=== PATIENT | female | born 1985 | race American Indian/Alaskan Native ===

== ENCOUNTER 2017-04-30 13:20 | Inpatient (IN) | payer MEDICAID ==
[2017-04-30] MEDS ORDERED: LACTATED RINGERS 1,000 ML ONE (14:09)
[2017-04-30] MEDS ORDERED: LACTATED RINGERS 1,000 ML IV ONE (14:11)
[2017-04-30] MEDS ORDERED: ePHEDrine SULFATE IV PRN ×2 (15:28→17:33)
[2017-04-30] MEDS ORDERED: STADOL IV PRN (15:28)
[2017-04-30] MEDS ORDERED: BRETHINE IVP PRN (15:28)
[2017-04-30] MEDS ORDERED: ZOFRAN IV PRN ×2 (15:28→21:33)
[2017-04-30] MEDS ORDERED: BRETHINE SUB-Q PRN (15:28)
[2017-04-30] MEDS ORDERED: PHENERGAN PO PRN ×2 (15:28→21:33)
[2017-04-30] MEDS ORDERED: MINERAL OIL PO PRN (15:28)
[2017-04-30] MEDS ORDERED: SUBLIMAZE IV PRN (15:28)
--- NOTE | 2017-04-30 15:34 | History and Physical Report ---
History of Present Illness Date of examination: 04/30/17 Chief complaint: SROM clear fluid @ 1200 History of present illness: Pt is a 31yo BF EDC 05/05/17; EGA 39 2/7 weeks presents to L&D complaining of SROM clear fluid @ 1200 followed by irregular contractions. She received care at [facility] ; however records are not available and GBS is unknown. Past History Past Medical History: no pertinent history Past Surgical History: no surgical history Social history: no significant social history, single - Obstetrical History Expected Date of Delivery: 05/05/17 Actual Gestation: 39 Week(s) 2 Day(s) : 3 Medications and Allergies Allergies Allergy/AdvReac Type Severity Reaction Status Date / Time No Known Allergies Allergy Verified 05/03/15 10:20 Home Medications Medication Instructions Recorded Confirmed Last Taken Type Multivit-Min/Folic Acid/[id number] 1 each PO DAILY 05/03/15 04/30/17 04/28/17 10:00 History [Alive Women's Gummy Vitamins] metroNIDAZOLE [Flagyl] 500 mg PO Q12HR 05/03/15 04/30/17 05/07/15 History 0100 valACYclovir [Valtrex] 500 mg PO BID 05/03/15 04/30/17 04/30/17 10:00 History 1 HYDROcodone/APAP 5-325 [[place] 1 each PO Q6H PRN #30 tablet 05/09/15 04/30/17 Unknown Rx 5-325 mg TAB] Ibuprofen [Motrin 600 MG tab] 600 mg PO Q6HR #30 tablet 05/09/15 04/30/17 Unknown Rx Ferrous Sulfate [Feosol 325 MG tab] 65 mg PO QDAY 04/30/17 04/30/17 04/30/17 10: 00 History Active Meds: Active Medications Butorphanol Tartrate (Stadol) 2 mg IV Q2H PRN PRN Reason: Pain , Severe (7-10) Ephedrine Sulfate (Ephedrine Sulfate) 10 mg IV Q2M PRN PRN Reason: Hypotension Fentanyl (Sublimaze) 100 mcg IV Q2H PRN PRN Reason: Labor Pain Ampicillin Sodium (Polycillin/Ns 1 Gm/50 Ml) 1 gm in 50 mls @ 100 mls/hr IV Q4HR POLA PRN Reason: Protocol Ampicillin Sodium (Polycillin/Ns 2 Gm/100 Ml) 2 gm in 100 mls @ 100 mls/hr IV ONCE ONE PRN Reason: Protocol Stop: 04/30/17 16:27 Lactated Ringer's (Lactated Ringers) 1,000 mls @ 125 mls/hr IV DIRECT POLA Oxytocin/Sodium Chloride (Pitocin/Ns 20 Unit/1000ml Drip) 20 units in 1,000 mls @ 125 mls/hr IV DIRECT POLA Oxytocin/Sodium Chloride (Pitocin/Ns 30 Unit/500ml) 30 units in 500 mls @ 1 mls /hr IV TITR POLA; 1 MILLIUNITS/MIN PRN Reason: Protocol Oxytocin/Sodium Chloride (Pitocin/Ns 30 Unit/500ml) 30 units in 500 mls @ 4 mls /hr IV TITR POLA PRN Reason: Protocol Lidocaine (Xylocaine 2%) 20 ml INFILTRATI ONCE ONE Stop: 04/30/17 15:29 Mineral Oil (Mineral Oil) 30 ml PO QHS PRN PRN Reason: Constipation Ondansetron HCl (Zofran) 4 mg IV Q8H PRN PRN Reason: Nausea And Vomiting Promethazine HCl (Phenergan) 25 mg PO Q6H PRN PRN Reason: Nausea And Vomiting Terbutaline Sulfate (Brethine) 0.25 mg SUB-Q ONCE PRN PRN Reason: Hyperstimulation/Hypertonicity Terbutaline Sulfate (Brethine) 0.25 mg IVP ONCE PRN PRN Reason: Hyperstimulation/Hypertonicity Review of Systems All systems: negative - Vital Signs Vital signs: Vital Signs Temp Pulse Resp BP 96.2 F L 90 18 133/81 04/30/17 13:37 04/30/17 13:37 04/30/17 13:37 04/30/17 13:37 Temp Pulse Resp BP Pulse Ox 96.2 F L 90 18 133/81 04/30/17 13:37 04/30/17 13:40 04/30/17 13:37 04/30/17 13:40 - Physical Exam Breasts: Positive: deferred Cardiovascular: Regular rate Lungs: Positive: Clear to auscultation Abdomen: Positive: normal appearance, soft Genitourinary (Female): Positive: normal external genitalia Vagina: Positive: normal moisture Uterus: Positive: enlarged Extremities: Positive: normal - Obstetrical FHR: category 1 Uterine Contraction Monitor Mode: External Cervical Dilatation: 1.5 Cervical Effacement Percentage: 90 station: -2 Uterine Contraction Pattern: Irregular Uterine Tone Measurement Phase: Contraction Uterine Contraction Intensity: Mild Results Result Diagrams: 04/30/17 14:20 All other labs normal. Ultrasound: report reviewed Assessment and Plan - Patient Problems (1) 39 weeks gestation of Onset Date: 04/30/17 Current Visit: Yes Status: Acute Plan to address problem: A: IUP @ 39 2/7 weeks in labor Unknown GBS P: Admit to L&D for expectant vaginal delivery IV Ampicillin (2) Anemia affecting third Onset Date: 04/30/17 Current Visit: Yes Status: Acute
--- NOTE | 2017-04-30 15:39 | Ultrasound Report ---
FINAL REPORT EXAM: US OB FOLLOW UP HISTORY: SROM TECHNIQUE: Obstetrical sonographic imaging was performed Comparison: None, no previous exams have been performed FINDINGS: Images demonstrate single live intrauterine gestation in vertex presentation. Posterior fundal placenta without previa identified. heart rate measures 144 beats per minute. Calculated JENNIFER 8.6 centimeters. Cervical length measures 3.9 centimeters. measurements with estimated gestational age as follows: Biparietal diameter 9.48 centimeters, 38 weeks 5 days Head circumference 33.77 centimeters, 38 weeks 5 days Abdominal circumference 34.96 centimeters, 38 weeks 6 days Femur length 7.42 centimeters, 38 weeks 0 days Average ultrasonographic gestational age is 38 weeks 4 days with estimated due date 05/10/2017. Estimated weight 3548 grams +/-525 grams. Per the Hadlock criteria, 55th percentile per weight. HC/AC 0.97. Cephalic index 87.1. Biophysical profile score 8/8. anatomic survey was not performed due to the advanced gestational age. IMPRESSION: Single live intrauterine gestation in vertex presentation at 38 weeks 4 days with estimated due date of 05/10/2017. Calculated JENNIFER 8.6 centimeters. This is low normal but does not qualify for oligohydramnios. Posterior fundal placenta. No Previa. Cervical length measures 3.9 centimeters. heart rate measures 144 beats per minute. Biophysical profile score 8/8.
--- NOTE | 2017-04-30 15:40 | Ultrasound Report ---
FINAL REPORT EXAM: US OB BPP WO NON-STRESS HISTORY: SROM TECHNIQUE: Obstetrical sonographic imaging was performed. Comparison: None FINDINGS: Single live intrauterine gestation in vertex presentation at 38 weeks 4 days with estimated due date of 05/10/2017. Calculated JENNIFER 8.6 centimeters. This is low normal but does not qualify for oligohydramnios. Posterior fundal placenta. No Previa. Cervical length measures 3.9 centimeters. heart rate measures 144 beats per minute. Biophysical profile score 8/8. IMPRESSION: Biophysical profile score 8/8.
[2017-04-30 15:49] LABS: Hemoglobin 6.8 gm/dl (10.1-14.3); Mean Corpuscular HGB Conc 33 % (30-34); Mean Corpuscular Hemoglobin 30 pg (28-32); Mean Corpuscular Volume 91 fl (79-97); Platelet Count 317 K/mm3 (140-440); Red Blood Count 2.31 M/mm3 (3.65-5.03); Red Cell Distribution Width 23.8 % (13.2-15.2)
[2017-04-30] MEDS ORDERED: PITOCin/NS 30 UNIT/500ML 30 UNITS/500 ML BAG IV SCH ×2 (16:00)
[2017-04-30] MEDS ORDERED: PITOCin/NS 20 UNIT/1000ML DRIP 20 UNITS/1,000 ML BAG IV SCH ×2 (16:00→22:00)
[2017-04-30] MEDS ORDERED: POLYCILLIN/NS 2 GM/100 ML 2 GM/100 ML BAG IV ONE (16:00)
[2017-04-30] MEDS ORDERED: LACTATED RINGERS 1,000 ML IV SCH (16:00)
[2017-04-30] MEDS ORDERED: XYLOCAINE 2% INFILTRATI ONE (17:00)
[2017-04-30] MEDS ORDERED: NARCAN 2 MG/2 ML IV PRN (17:33)
--- NOTE | 2017-04-30 17:33 | Anesthesia Consultation ---
Anesthesia Consult and Med Hx Date of service: 04/30/17 - Airway Anesthetic Teeth Evaluation: Good ROM Head & Neck: Adequate Mental/Hyoid Distance: Adequate Mallampati Class: Class II Intubation Access Assessment: Probably Good - Pulmonary Exam CTA: Yes - Cardiac Exam Cardiac Exam: RRR - Pre-Operative Health Status ASA Pre-Surgery Classification: ASA2 Proposed Anesthetic Plan: Epidural - Pulmonary Hx Asthma: No COPD: No Hx Pneumonia: No - Cardiovascular System Hx Hypertension: No - Central Nervous System Hx Seizures: No Hx Psychiatric Problems: No - Endocrine Hx Renal Disease: No Hx End Stage Renal Disease: No Hx Hypothyroidism: No Hx Hyperthyroidism: No - Hematic Hx Anemia: No Hx Sickle Cell Disease: No - Other Systems Hx Alcohol Use: Yes
[2017-04-30] MEDS ORDERED: fentaNYL-BUPIV 2 MCG/ML-0.125% 200 MCG/100 ML BAG EPIDURAL SCH (18:00)
[2017-04-30] MEDS ORDERED: POLYCILLIN/NS 1 GM/50 ML 1 GM/50 ML BAG IV SCH (20:00)
[2017-04-30] MEDS ORDERED: PHENERGAN PR PRN (21:33)
[2017-04-30] MEDS ORDERED: BENADRYL PO PRN (21:33)
[2017-04-30] MEDS ORDERED: TUCKS PAD TP PRN (21:33)
[2017-04-30] MEDS ORDERED: LANSINOH TP PRN (21:33)
[2017-04-30] MEDS ORDERED: TYLENOL PO PRN (21:33)
[2017-04-30] MEDS ORDERED: NORCO 5/325 PO PRN (21:33)
[2017-04-30] MEDS ORDERED: DULCOLAX PR PRN (21:33)
[2017-04-30] MEDS ORDERED: MILK OF MAGNESIA PO PRN (21:33)
--- NOTE | 2017-04-30 21:40 | Procedure Note ---
OB Delivery Note - Delivery Date of Delivery: 04/30/17 Surgeon: HANNY PEREZ Estimated blood loss: 100cc - Vaginal Delivery presentation: vertex Delivery position: OA Intrapartum events: febrile- temp >100.3, PROM->1hr before delivery Delivery induction: none Delivery augmentation: pitocin Delivery monitor: external FHT, external uterine Route of delivery: Delivery placenta: spontaneous Delivery cord: 3 umbilical vessels Episiotomy: none Delivery laceration: none Anesthesia: epidural Delivery comments: delivered OA and placed on Mom's chest for [id number] contact and delayed cord clamping. - Infant A at 1 minute: 8 at 5 minutes: 9 Infant Gender: Female (3222gms)
[2017-04-30] MEDS ORDERED: SODIUM CHLORIDE FLUSH SYRINGE 10 ML IV PRN (22:00)
[2017-04-30] MEDS: MOTRIN PO SCH (22:07)
[2017-05-01] MEDS: FEOSOL PO SCH ×2 (00:49→18:20)
[2017-05-01] MEDS: COLACE PO SCH ×2 (00:49→18:19)
[2017-05-01] MEDS: MOTRIN PO SCH ×3 (05:19→18:11)
[2017-05-01 11:01] LABS: Hematocrit TNR % (30.3-42.9); Hemoglobin TNR gm/dl (10.1-14.3)
[2017-05-01 11:20] LABS: Hematocrit 38.1 % (30.3-42.9); Hemoglobin 12.6 gm/dl (10.1-14.3)
--- NOTE | 2017-05-01 11:51 | Progress Note ---
Assessment and Plan - Patient Problems (1) 39 weeks gestation of Onset Date: 04/30/17 Current Visit: Yes Status: Resolved (2) Anemia affecting third Onset Date: 04/30/17 Current Visit: Yes Status: Resolved (3) (normal spontaneous vaginal delivery) Onset Date: 05/01/17 Current Visit: No Status: Resolved Plan to address problem: A: S/P - PPD #1 Doing well P: May go home tomorrow. Subjective - Subjective Date of service: 05/01/17 Principal diagnosis: s/p - PPD #1 Interval history: Pt is feeling well without complaints. Bleeding improved. Patient reports: appetite normal, voiding normally, flatus, ambulating normally : doing well, nursing well Objective - Vital Signs Latest vital signs: Vital Signs Temp Pulse Resp BP BP Pulse Ox 05/01/17 07:47 97.6 F 18 94/43 05/01/17 05:19 98.2 F 98 H 20 100/54 98 05/01/17 01:11 98.8 F 98 H 20 114/54 98 05/01/17 00:23 99.0 F 97 H 18 115/56 96 04/30/17 23:14 112 H 102/50 04/30/17 23:13 107 H 105/51 96 04/30/17 22:45 120 H 106/54 04/30/17 22:14 102 H 137/60 04/30/17 21:21 101 H 100 04/30/17 21:17 107 H 100 04/30/17 21:15 110 H 97/45 04/30/17 21:12 106 H 100 04/30/17 21:06 106 H 98 04/30/17 21:01 89 100 04/30/17 20:57 97 H 100 04/30/17 20:51 97 H 100 04/30/17 20:46 86 100 04/30/17 20:41 97 H 100 04/30/17 20:36 103 H 100 04/30/17 20:31 93 H 100 04/30/17 20:27 95 H 100 04/30/17 20:22 92 H 100 04/30/17 20:20 99.1 F 04/30/17 20:17 93 H 100 04/30/17 20:14 90 93 04/30/17 20:12 87 100 04/30/17 19:52 94 H 90 04/30/17 19:47 98.7 F 20 100 04/30/17 19:16 80 110/59 04/30/17 18:56 94 H 94 04/30/17 18:51 86 97 04/30/17 18:47 113 H 86 04/30/17 18:46 103 H 100 04/30/17 18:42 86 114/55 04/30/17 18:41 92 H 100 04/30/17 18:37 85 115/58 04/30/17 18:36 82 100 04/30/17 18:32 96 H 133/65 04/30/17 18:31 97 H 100 04/30/17 18:26 87 100 04/30/17 18:25 76 122/57 04/30/17 18:21 83 87 04/30/17 18:20 73 114/56 04/30/17 18:19 84 92 04/30/17 18:16 100 H 89 04/30/17 18:14 92 H 104/56 04/30/17 18:12 72 111/59 92 04/30/17 18:11 74 100 04/30/17 18:10 71 110/57 04/30/17 18:08 93 H 107/58 04/30/17 18:07 53 L 83 L 04/30/17 18:06 89 106/52 100 04/30/17 18:04 96 H 102/50 04/30/17 18:02 87 108/51 04/30/17 18:01 88 100 04/30/17 18:00 73 117/61 04/30/17 17:59 95 H 93 04/30/17 17:58 86 115/56 04/30/17 17:56 48 L 105/51 99 04/30/17 17:54 96 H 107/58 04/30/17 17:52 86 105/51 04/30/17 17:50 83 110/58 100 04/30/17 17:48 85 142/66 04/30/17 17:46 86 140/64 04/30/17 17:44 89 135/80 04/30/17 17:42 90 128/67 04/30/17 17:40 88 122/64 04/30/17 17:38 92 H 113/64 04/30/17 17:36 80 139/73 04/30/17 17:34 90 140/73 04/30/17 17:32 89 141/65 99 04/30/17 17:31 47 L 04/30/17 17:30 76 143/65 04/30/17 17:28 73 144/70 04/30/17 17:27 77 100 04/30/17 17:26 84 135/68 04/30/17 17:23 84 139/70 04/30/17 17:22 80 99 04/30/17 17:17 88 100 04/30/17 17:08 16 04/30/17 16:54 76 136/75 04/30/17 16:20 93 H 125/67 04/30/17 16:12 18 04/30/17 13:40 90 133/81 04/30/17 13:37 96.2 F L 90 18 133/81 Intake and Output 04/30/17 05/01/17 05/01/17 22:59 06:59 14:59 Intake Total 400 Output Total 400 1800 Balance -400 -1400 Intake: Oral 400 Output: Urine 400 1800 Indwelling Catheter 400 1800 Other: Total, Intake Amount 200 Total, Output Amount 200 500 Estimated Blood Loss 100 - Exam Breasts: Present: deferred Cardiovascular: Present: Regular rate Lungs: Present: Clear to auscultation Abdomen: Present: normal appearance, soft Uterus: Present: normal, firm, fundal height below umbilicus Extremities: Present: normal - Labs Labs: Abnormal lab results 04/30/17 Range/Units 14:20 WBC 11.4 H (4.5-11.0) K/mm3 RBC 2.31 L (3.65-5.03) M/mm3 Hgb 6.8 L (10.1-14.3) gm/dl Hct 21.0 L (30.3-42.9) % RDW 23.8 H (13.2-15.2) % Laboratory Tests 04/30/17 04/30/17 05/01/17 14:20 14:20 09:55 WBC 11.4 H RBC 2.31 L Hgb 6.8 L TNR Hct 21.0 L TNR MCV 91 MCH 30 MCHC 33 RDW 23.8 H Plt Count 317 Blood Type A POSITIVE Antibody Screen Negative 05/01/17 10:56 WBC RBC Hgb 12.6 D Hct 38.1 D MCV MCH MCHC RDW Plt Count Blood Type Antibody Screen
--- NOTE | 2017-05-01 12:28 | Discharge Summary ---
Providers - Providers Date of Admission: 04/30/17 21:05 Date of discharge: 05/02/17 Attending physician: HANNY PEREZ Primary care physician: HANNY PEREZ Hospitalization Reason for admission: active labor, rupture of membranes, IUP at term Delivery: Episiotomy: none Laceration: none Other procedures: none complications: none Discharge diagnosis: IUP at term delivered [place] baby: female Hospital course: Unremarkable. Condition at discharge: Good Disposition: DC-01 TO HOME OR SELFCARE - Discharge Diagnoses (1) 39 weeks gestation of Status: Resolved (2) Anemia affecting third Status: Resolved (3) (normal spontaneous vaginal delivery) Status: Resolved Plan - Discharge Medications Prescriptions: Ibuprofen [Motrin 600 MG tab] 600 mg PO Q6HR #30 tablet Pnv No.95/Ferrous Fum/Folic AC [ Multivitamin Tablet] 1 each PO DAILY # 30 tablet - Provider Discharge Summary Activity: routine, no sex for 6 weeks, no heavy lifting 4 weeks, no strenuous exercise Diet: routine Instructions: routine Additional instructions: [] Smoking cessation referral if applicable(refer to patient education folder for contact #) [] Refer to [facility]'s [facility] Booklet Call your doctor immediately for: * Fever > 100.5 * Heavy vaginal bleeding ( >1 pad per hour) * Severe persistent headache * Shortness of breath * Reddened, hot, painful area to leg or breast * Drainage or odor from incision. * Keep incision clean and dry at all times and follow doctor's instructions regarding bathing/showering - Follow up plan Follow up: HANNY PEREZ MD [Primary Care Provider] - 6 Weeks
[2017-05-01 12:58] LABS: Amphetamine Screen,Urine PRESUMPTIVE NEGATIVE; Benzodiazepines Screen,Urine PRESUMPTIVE NEGATIVE; Cannabinoid Screen,Urine PRESUMPTIVE NEGATIVE; Cocaine Screen,Urine PRESUMPTIVE NEGATIVE; Methadone Screen,Urine PRESUMPTIVE NEGATIVE; Opiate Screen,Urine PRESUMPTIVE NEGATIVE
[2017-05-01] MEDS: PRENATAL VITAMIN PO SCH (18:20)
[2017-05-01] MEDS ORDERED: M-M-R II VACCINE SUB-Q ONE (21:33)
[2017-05-02] MEDS: MOTRIN PO SCH ×4 (00:50→17:46)
[2017-05-02] MEDS ORDERED: BOOSTRIX IM ONE (06:00)
[2017-05-02] MEDS: PRENATAL VITAMIN PO SCH (12:25)
[2017-05-02] MEDS: COLACE PO SCH (12:25)
[2017-05-02] MEDS: FEOSOL PO SCH (12:25)
[2017-05-02 17:11] VITALS: BP 123/61
== END 2017-05-02 19:57 | disposition home or self-care (01) | DRG 775 ==
LOC: TRG 13:20 → LD 13:22 → TRG 21:00 → LD 21:05 → OB 23:20
PROVIDERS: ADMIT Obstetrics & Gynecology; ATTEND Obstetrics & Gynecology
PROC: 10E0XZZ Delivery of Products of Conception, External Approach (ICD-10-PCS; principal; 2017-04-30)
PROC: 3E0R3BZ Introduction of Anesthetic Agent into Spinal Canal, Percutaneous Approach (ICD-10-PCS; 2017-04-30)
PROC: 00HU33Z Insertion of Infusion Device into Spinal Canal, Percutaneous Approach (ICD-10-PCS; 2017-04-30)
PROC: 3E0234Z Introduction of Serum, Toxoid and Vaccine into Muscle, Percutaneous Approach (ICD-10-PCS; 2017-05-01)
DX: O42.02 Full-term premature rupture of membranes, onset of labor within 24 hours of rupture (principal); Z3A.39 39 weeks gestation of pregnancy; Z37.0 Single live birth; O99.02 Anemia complicating childbirth; D64.9 Anemia, unspecified; O99.314 Alcohol use complicating childbirth; Z72.89 Other problems related to lifestyle; Z23 Encounter for immunization
CPT/HCPCS: 36415; 76816; 76819; 80307; 85014; 85018; 85027; 86592; 86706; 86762; 86850; 86900; 86901; 87806; 88307; 99211; G0463; J0290; J0595; J2590; J3010; J7120

== ENCOUNTER 2019-08-18 12:36 | Inpatient (IN) | payer MEDICAID ==
[2019-08-18] MEDS ORDERED: ePHEDrine SULFATE 50 MG/1 ML INJ IV PRN (13:51)
[2019-08-18] MEDS ORDERED: TERBUTALINE 1 MG/1 ML INJ SUB-Q PRN (13:51)
[2019-08-18] MEDS ORDERED: MINERAL OIL 30 ML ORAL LIQD PO PRN (13:51)
[2019-08-18] MEDS ORDERED: LACTATED RINGERS 1,000 ML IV SCH (14:00)
[2019-08-18] MEDS ORDERED: AMPICILLIN/NS 2 GM/100 ML 2 GM/100 ML BAG IV ONE (14:30)
[2019-08-18] MEDS: fentaNYL 100 MCG/2 ML INJ IV PRN ×2 (14:37→17:05)
[2019-08-18] MEDS ORDERED: LIDOCAINE (2%) 20 MG/1 ML VIAL 20 ML MDV INFILTRATI ONE (15:00)
[2019-08-18 15:07] LABS: Hematocrit 40.2 % (30.3-42.9); Hemoglobin 13.6 gm/dl (10.1-14.3); Mean Corpuscular HGB Conc 34 % (30-34); Mean Corpuscular Volume 94 fl (79-97); Platelet Count 200 K/mm3 (140-440); Red Blood Count 4.27 M/mm3 (3.65-5.03); Red Cell Distribution Width 15.2 % (13.2-15.2)
--- NOTE | 2019-08-18 15:23 | History and Physical Report ---
History of Present Illness Date of examination: 08/18/19 Date of admission: 08/18/19 13:57 Chief complaint: Labor History of present illness: 34 year old presents in active advanced labor. Patient denies leaking of fluid or vaginal bleeding. Patient receives care at [facility]. No records are available. EDC per patient report is 08/22/2019 (based on US and LMP). uneventful per patient report. Patient reports she has had 3 previous vaginal deliveries (one and two full term). labs were drawn upon admission. Past History Past Medical History: other (obesity) Past Surgical History: no surgical history [employer] History: denies: abnormal PAP smear, chlamydia, gonorrhea, hepatitis B, hepatitis C, herpes, HIV, syphilis, trichomonas Family/Genetic History: diabetes Social history: lives with family, full code. denies: smoking, alcohol abuse, prescription drug abuse, IV drug use - Obstetrical History Expected Date of Delivery: 08/22/19 Actual Gestation: 39 Week(s) 3 Day(s) : 4 Para: 3 Hx # Term Pregnancies: 2 Number of Pregnancies: 1 Spontaneous Abortions: 0 Induced : 0 Number of Living Children: 2 Medications and Allergies Allergies Allergy/AdvReac Type Severity Reaction Status Date / Time No Known Allergies Allergy Verified 05/03/15 10:20 Home Medications Medication Instructions Recorded Confirmed Last Taken Type Multivit-Min/Folic Acid/Rpg208 1 each PO DAILY 05/03/15 04/30/17 04/28/17 10:00 History [Alive Women's Gummy Vitamins] metroNIDAZOLE [Flagyl] 500 mg PO Q12HR 05/03/15 04/30/17 05/07/15 History 0100 valACYclovir [Valtrex] 500 mg PO BID 05/03/15 04/30/17 04/30/17 10:00 History 1 HYDROcodone/APAP 5-325 [[place] 1 each PO Q6H PRN #30 tablet 05/09/15 04/30/17 Unknown Rx 5-325 mg TAB] Ferrous Sulfate [Feosol 325 MG tab] 65 mg PO QDAY 04/30/17 04/30/17 04/30/17 10:00 History Ibuprofen [Motrin 600 MG tab] 600 mg PO Q6HR #30 tablet 05/01/17 Unknown Rx Pnv No.95/Ferrous Fum/Folic AC 1 each PO DAILY #30 tablet 05/01/17 Unknown Rx [ Multivitamin Tablet] Active Meds: Active Medications Ephedrine Sulfate (Ephedrine Sulfate) 10 mg IV Q2M PRN PRN Reason: Hypotension Fentanyl (Sublimaze) 100 mcg IV Q2H PRN PRN Reason: Labor Pain Last Admin: 08/18/19 14:37 Dose: 100 mcg Documented by: Oxytocin/Sodium Chloride (Pitocin/Ns 20 Unit/1000ml Drip) 20 units in 1,000 mls @ 125 mls/hr IV DIRECT POLA Lactated Ringer's (Lactated Ringers) 1,000 mls @ 125 mls/hr IV DIRECT POLA Last Admin: 08/18/19 14:34 Dose: 125 mls/hr Documented by: Ampicillin Sodium (Ampicillin/Ns 2 Gm/100 Ml) 2 gm in 100 mls @ 100 mls/hr IV ONCE ONE; Protocol Stop: 08/18/19 15:29 Last Admin: 08/18/19 14:34 Dose: 100 mls/hr Documented by: Mineral Oil (Mineral Oil) 30 ml PO QHS PRN PRN Reason: Constipation Terbutaline Sulfate (Brethine) 0.25 mg SUB-Q ONCE PRN PRN Reason: Hyperstimulation/Hypertonicity Review of Systems All systems: negative (contractions) - Vital Signs Vital signs: Vital Signs Pulse Pulse Ox 86 81 L 08/18/19 13:00 08/18/19 13:00 Temp Pulse Resp BP Pulse Ox 98.5 F 89 18 141/71 98 08/18/19 13:50 08/18/19 15:13 08/18/19 13:50 08/18/19 14:44 08/18/19 15:13 - Physical Exam Abdomen: Positive: normal appearance, soft. Negative: distention, tenderness, guarding, rigidity Genitourinary (Female): Positive: normal external genitalia, normal perenium. Negative: perineal/vulvar lesions (no lesions seen on careful exam with bright light upon admission) Vagina: Positive: normal moisture Uterus: Positive: enlarged. Negative: tender Anus/Rectum: Positive: normal perianal skin Extremities: Positive: normal. Negative: tenderness - Obstetrical FHR: category 1 Uterine Contraction Monitor Mode: External Cervical Dilatation: 8 Cervical Effacement Percentage: 90 station: -2 Uterine Contraction Pattern: Regular Uterine Contraction Intensity: Moderate Results Result Diagrams: 08/18/19 14:00 All other labs normal. Assessment and Plan A: at 39 weeks, 3 days gestation. Active labor. GBS unknown. No records available. P: Admit. Request records. EFM. GBS prophylaxis. Draw labs.
[2019-08-18 15:56] LABS: Hepatitis C Virus Antibody Non-Reactive (NonReactive)
[2019-08-18] MEDS ORDERED: ONDANSETRON 4 MG/2 ML INJ IV PRN (16:19)
[2019-08-18] MEDS: OXYTOCIN 20 UNIT/1000ML DRIP 20 UNITS/1,000 ML BAG IV SCH ×2 (16:56→18:35)
[2019-08-18 19:15] LABS: Alanine Aminotransferase 10 units/L (7-56); Albumin 3.4 g/dL (3.9-5); BUN/Creatinine Ratio 12; Blood Urea Nitrogen 7 mg/dL (7-17); Calcium 9.3 mg/dL (8.4-10.2); Hemolysis Index 16
[2019-08-18] MEDS ORDERED: AMPICILLIN/NS 1 GM/50 ML 1 GM/50 ML BAG IV SCH (19:29)
[2019-08-18] MEDS ORDERED: MAGNESIUM HYDROXIDE (MOM) ORAL LIQD UDC PO PRN (19:31)
[2019-08-18] MEDS ORDERED: LANOLIN/ZINC/DIMETHICONE (LANSINOH) 7 GM TP PRN (19:31)
[2019-08-18] MEDS ORDERED: WITCH HAZEL/ GLYCERIN PAD TP PRN (19:31)
[2019-08-18] MEDS ORDERED: HYDROcodone/ACETAMINOPHEN 5-325 MG TAB PO PRN (19:31)
[2019-08-18] MEDS ORDERED: diphenhydrAMINE 25 MG CAP PO PRN (19:31)
--- NOTE | 2019-08-18 19:45 | Procedure Note ---
OB Delivery Note - Delivery Date of Delivery: 08/18/19 Surgeon: YVAN FITZPATRICK Estimated blood loss: 300cc - Vaginal Delivery presentation: vertex Delivery position: OA Intrapartum events: none Delivery induction: none Delivery monitor: external FHT, external uterine Route of delivery: Delivery placenta: spontaneous Delivery cord: 3 umbilical vessels Episiotomy: midline Delivery laceration: none Delivery repair: vicryl Anesthesia: local Delivery comments: Spontaneous vaginal delivery at 16:50 of liveborn male weighing 3559 kg over 2nd degree midline episiotomy with apgars of 8/9. Local anesthesia. Baby placed immediately skin to skin with mom after delivery. Spontaneous cry and respirations. Baby bulb suctioned and dried. 3 vessel cord double clamped and cut. Spontaneous delivery of intact placenta and membranes by mistry mechanism. Pitocin to IV fluids after delivery of placenta. Fundus firm and midline. EBL 300 cc. Repair of 2nd degree midline episiotomy with 2-0 vicryl. Sponge count correct. Vaginal sweep negative. Mother and baby stable.
[2019-08-18] MEDS: DOCUSATE SODIUM 100 MG CAP PO SCH (22:22)
[2019-08-18] MEDS: IBUPROFEN 600 MG TAB PO SCH (22:23)
[2019-08-19] MEDS: IBUPROFEN 600 MG TAB PO SCH ×3 (06:07→18:26)
[2019-08-19 08:17] LABS: Hematocrit 35.4 % (30.3-42.9); Hemoglobin 12.4 gm/dl (10.1-14.3)
--- NOTE | 2019-08-19 10:27 | Progress Note ---
Subjective - Subjective Date of service: 08/19/19 Principal diagnosis: day 1 S/P Interval history: day 1 S/P . Doing well. Voiding without difficulty. Reports small amount of lochia. Patient reports: appetite normal, voiding normally, pain well controlled, flatus, ambulating normally, no dizzy ambulation, no nauseated : doing well Objective - Vital Signs Latest vital signs: Vital Signs Temp Pulse Resp BP Pulse Ox 08/19/19 07:37 97.8 F 72 18 123/69 98 08/19/19 04:41 97.9 F 89 18 104/54 98 08/19/19 01:48 98.4 F 79 18 99/54 98 08/18/19 21:30 99.0 F 93 H 18 127/61 98 08/18/19 18:41 79 116/55 08/18/19 18:40 99.4 F 81 18 99 08/18/19 17:46 74 99 08/18/19 17:45 99.6 F 73 18 120/61 99 08/18/19 17:41 82 99 08/18/19 17:36 78 100 08/18/19 17:31 72 99 08/18/19 17:26 79 99 08/18/19 17:21 75 99 08/18/19 17:16 79 98 08/18/19 17:11 82 97 08/18/19 17:00 76 132/63 08/18/19 16:47 86 100 08/18/19 16:46 76 79 L 08/18/19 16:42 75 100 08/18/19 16:38 88 92 08/18/19 16:37 89 100 08/18/19 16:32 87 100 08/18/19 16:27 83 96 08/18/19 16:26 82 91 08/18/19 16:22 86 100 08/18/19 16:17 78 100 08/18/19 16:16 67 92 08/18/19 16:12 80 100 08/18/19 16:09 82 46 L 08/18/19 16:07 81 100 08/18/19 16:02 83 99 08/18/19 15:57 84 100 08/18/19 15:38 90 98 08/18/19 15:33 80 99 08/18/19 15:28 78 98 08/18/19 15:23 89 97 08/18/19 15:18 88 97 08/18/19 15:13 89 98 08/18/19 15:08 91 H 98 08/18/19 15:06 89 88 08/18/19 15:03 78 98 08/18/19 14:58 82 97 08/18/19 14:53 86 98 08/18/19 14:48 82 98 08/18/19 14:44 93 H 141/71 08/18/19 14:43 93 H 100 08/18/19 14:38 71 100 08/18/19 14:07 93 H 96 08/18/19 14:03 101 H 94 08/18/19 14:02 86 100 08/18/19 13:57 92 H 97 08/18/19 13:52 54 L 98 08/18/19 13:50 98.5 F 18 08/18/19 13:07 91 H 129/69 08/18/19 13:00 86 81 L Intake and Output 08/18/19 08/19/19 08/19/19 23:59 07:59 15:59 Intake Total 206.25 600 Output Total 800 500 Balance -593.75 100 Intake: IV 206.25 PITOCin/NS 20 UNIT/1000ML 206.25 DRIP 20 units In 1,000 ml @ 125 mls/hr IV DIRECT POLA Rx#:[id number] Intake, Free Water 600 Output: Urine 800 500 Self-Catheterization 800 500 Other: Total, Output Amount 300 500 # Voids Self-Catheterization 1 Estimated Blood Loss 300 - Exam Cardiovascular: Present: Regular rate, Normal S1, Normal S2 Lungs: Present: Clear to auscultation Abdomen: Present: normal appearance, soft. Absent: distention, tenderness, guarding, rigidity Uterus: Present: normal, firm, fundal height below umbilicus. Absent: silva gginess, tenderness Extremities: Present: normal. Absent: tenderness - Labs Labs: Abnormal lab results 08/18/19 Range/Units 18:15 Sodium 136 L (137-145) mmol/L Carbon Dioxide 21 L (22-30) mmol/L Creatinine 0.6 L (0.7-1.2) mg/dL Glucose 128 H (65-100) mg/dL Alkaline Phosphatase 171 H (35-129) units/L Albumin 3.4 L (3.9-5) g/dL
[2019-08-19] MEDS: DOCUSATE SODIUM 100 MG CAP PO SCH ×2 (10:49→22:46)
[2019-08-20] MEDS: IBUPROFEN 600 MG TAB PO SCH ×2 (00:42→06:06)
--- NOTE | 2019-08-20 06:52 | Progress Note ---
Assessment and Plan A: day 2 S/P . P: Discharge patient home today. Discussed with patient discharge instructions and warning signs. Advised patient to avoid lifting, intercourse, housework. Advised patient to continue taking her vitamins and iron supplements. Advised patient to follow up at [facility] in 6 weeks for exam. Patient voiced understanding of all instructions. Subjective - Subjective Date of service: 08/20/19 Principal diagnosis: day 2 S/P Interval history: day 2 S/P . Doing well. Voiding without difficulty. Reports small amount of lochia. Patient reports: appetite normal, voiding normally, pain well controlled, flatus, ambulating normally, no dizzy ambulation, no nauseated [place]: doing well Objective - Vital Signs Latest vital signs: Vital Signs Temp Pulse Resp BP Pulse Ox 08/20/19 03:17 98.1 F 86 20 113/62 96 08/19/19 16:18 97.9 F 101 H 18 116/76 98 08/19/19 12:22 98.6 F 81 18 131/70 96 08/19/19 07:37 97.8 F 72 18 123/69 98 Intake and Output 08/19/19 08/19/19 08/20/19 15:59 23:59 07:59 Intake Total 480 240 Balance 480 240 Intake: Oral 480 240 Other: Total, Intake Amount 240 240 # Voids Self-Catheterization 1 1 1 - Exam Cardiovascular: Present: Regular rate, Normal S1, Normal S2 Lungs: Present: Clear to auscultation Abdomen: Present: normal appearance, soft. Absent: distention, tenderness, guarding, rigidity Uterus: Present: normal, firm, fundal height below umbilicus. Absent: bogginess, tenderness Extremities: Present: normal. Absent: tenderness, edema
--- NOTE | 2019-08-20 06:55 | Discharge Summary ---
Providers - Providers Date of Admission: 08/18/19 13:57 Date of discharge: 08/20/19 Attending physician: GIOVANA MAYEN Primary care physician: LARRY MARTINEZ MD Hospitalization Reason for admission: active labor Delivery: Episiotomy: midline Other procedures: none complications: none Discharge diagnosis: IUP at term delivered Rudyard baby: male Pertinent studies: Labs Hospital course: Normal hospital course. Condition at discharge: Good Disposition: DC-01 TO HOME OR SELFCARE - Discharge Diagnoses (1) Term delivered Status: Acute Plan - Provider Discharge Summary Activity: routine, no sex for 6 weeks, no heavy lifting 4 weeks, no strenuous exercise Diet: routine Instructions: routine Additional instructions: Continue taking your vitamin and iron supplements at home. Call your doctor immediately for: * Fever > 100.5 * Heavy vaginal bleeding ( >1 pad per hour) * Severe persistent headache * Shortness of breath * Reddened, hot, painful area to leg or breast - Follow up plan Follow up: PRIMARY CAREMD [Primary Care Provider] - 6 Weeks
[2019-08-20 09:17] VITALS: BP 103/47
[2019-08-20] MEDS: DOCUSATE SODIUM 100 MG CAP PO SCH (10:19)
== END 2019-08-20 13:12 | disposition home or self-care (01) | DRG 775 ==
LOC: TRG 12:36 → APU 12:41 → TRG 13:56 → LD 13:57 → OB 21:38
PROVIDERS: ADMIT Obstetrics & Gynecology; ATTEND Obstetrics & Gynecology
PROC: 10E0XZZ Delivery of Products of Conception, External Approach (ICD-10-PCS; principal; 2019-08-18)
PROC: 0KQM0ZZ Repair Perineum Muscle, Open Approach (ICD-10-PCS; 2019-08-18)
PROC: 0W8NXZZ Division of Female Perineum, External Approach (ICD-10-PCS; 2019-08-18)
DX: O99.214 Obesity complicating childbirth (principal); O70.1 Second degree perineal laceration during delivery; Z37.0 Single live birth; Z3A.39 39 weeks gestation of pregnancy; Z83.3 Family history of diabetes mellitus; E66.9 Obesity, unspecified
CPT/HCPCS: 36415; 59025; 80053; 83036; 85014; 85018; 85027; 86592; 86706; 86762; 86803; 86850; 86900; 86901; 87806; 96360; 96361; 96365; 96366; 96375; 96376; G0378; A6250; J0290; J2405; J2590; J3010; J7120

== ENCOUNTER 2020-05-12 11:17 | Emergency (ER) | payer MEDICAID ==
[2020-05-12] MEDS ORDERED: ONDANSETRON 4 MG ODT TAB PO ONE (11:47)
[2020-05-12] MEDS ORDERED: MECLIZINE 25 MG TAB PO ONE ×2 (11:47→11:57)
--- NOTE | 2020-05-12 11:48 | Emergency Department Report ---
ED General Adult HPI - General Chief complaint: Dizziness Stated complaint: VOMITTING/DIZZY/RINGING IN EAR Time Seen by Provider: 05/12/20 11:47 Source: patient Mode of arrival: Wheelchair Limitations: No Limitations - History of Present Illness Initial comments: 34-year-old -[place] female presents with complaints of dizziness and nausea and vomiting x4 days. She describes the dizziness as room spinning and states it worsens with head movement and causes her to feel nauseous and vomit. She denies any head trauma, vision changes, headache, loss of consciousness, blood thinner use, history of vertigo, difficulty with speech/ambulation, or numbness/tingling/weakness in her limbs. She does admit to recent upper respiratory infection, but denies cough, shortness of breath, or chest pain. No fever/chills/sweats per patient or difficulty moving her neck. No prior medical history per patient. - Related Data Home Medications Medication Instructions Recorded Confirmed Last Taken valACYclovir [Valtrex] 500 mg PO DAILY 05/03/15 08/18/19 08/17/19 15:00 Vit-Fe Fumar-FA [ 1 tab PO QDAY 08/18/19 08/18/19 Unknown Vitamin] Previous Rx's Medication Instructions Recorded Last Taken Type Ibuprofen [Motrin 600 MG tab] 600 mg PO Q6HR #30 tablet 08/20/19 Unknown Rx Meclizine [Antivert] 25 - 50 mg PO TID PRN #20 tablet 05/12/20 Unknown Rx Ondansetron [Zofran Odt] 4 mg PO Q8HR PRN #15 tab.rapdis 05/12/20 Unknown Rx Sulfamethoxazole/Trimethoprim 1 each PO BID 3 Days #6 tablet 05/12/20 Unknown Rx [Bactrim DS TAB] Allergies Allergy/AdvReac Type Severity Reaction Status Date / Time No Known Allergies Allergy Verified 05/03/15 10:20 ED Review of Systems ROS: Stated complaint: VOMITTING/DIZZY/RINGING IN EAR Other details as noted in HPI Constitutional: denies: chills, diaphoresis, fever, malaise, weakness Eyes: denies: eye pain, vision change ENT: denies: throat pain Respiratory: denies: cough, shortness of breath Cardiovascular: denies: chest pain Gastrointestinal: nausea, vomiting. denies: abdominal pain Genitourinary: denies: urgency, dysuria Musculoskeletal: denies: back pain Skin: denies: rash, lesions, change in color Neurological: denies: headache, weakness, numbness, paresthesias, confusion, abnormal gait Hematological/Lymphatic: denies: easy bleeding, easy bruising, swollen glands ED Past Medical Hx - Past Medical History Previous Medical History?: No Hx Hypertension: No Hx Congestive Heart Failure: No Hx Diabetes: No Hx Deep Vein Thrombosis: No Hx Renal Disease: No Hx Sickle Cell Disease: No Hx Seizures: No Hx Asthma: No Hx COPD: No Hx HIV: No - Social History Smoking Status: Never Smoker Substance Use Type: None - Medications Home Medications: Home Medications Medication Instructions Recorded Confirmed Last Taken Type valACYclovir [Valtrex] 500 mg PO DAILY 05/03/15 08/18/19 08/17/19 15:00 History Vit-Fe Fumar-FA [ 1 tab PO QDAY 08/18/19 08/18/19 Unknown History Vitamin] Ibuprofen [Motrin 600 MG tab] 600 mg PO Q6HR #30 tablet 08/20/19 Unknown Rx Meclizine [Antivert] 25 - 50 mg PO TID PRN #20 tablet 05/12/20 Unknown Rx Ondansetron [Zofran Odt] 4 mg PO Q8HR PRN #15 tab.rapdis 05/12/20 Unknown Rx Sulfamethoxazole/Trimethoprim 1 each PO BID 3 Days #6 tablet 05/12/20 Unknown Rx [Bactrim DS TAB] ED Physical Exam - General Limitations: No Limitations General appearance: alert, in no apparent distress - Head Head exam: Present: atraumatic, normocephalic - Eye Eye exam: Present: normal appearance. Absent: scleral icterus - Neck Neck exam: Present: normal inspection, full ROM - Respiratory Respiratory exam: Present: normal lung sounds bilaterally. Absent: respiratory distress - Cardiovascular Cardiovascular Exam: Present: regular rate, normal rhythm. Absent: systolic murmur, diastolic murmur, rubs, gallop - GI/Abdominal GI/Abdominal exam: Present: soft, normal bowel sounds. Absent: distended, tenderness, guarding, rebound, rigid - Extremities Exam Extremities exam: Present: full ROM - Back Exam Back exam: Present: normal inspection - Neurological Exam Neurological exam: Present: alert, oriented X3, CN II-XII intact, normal gait. Absent: motor sensory deficit - Expanded Neurological Exam Expanded Cranial nerves: Nystagmus: Abnormal Right, Abnormal Left Cerebellar function: Finger to Nose: Normal, Heel to [place]: Normal, Romberg: Normal Sensory exam: Upper Extremity Light Touch: Normal, Lower Extremity Light Touch: Normal Motor strength exam: RUE: 5, LUE: 5, RLE: 5, LLE: 5 - Psychiatric Psychiatric exam: Present: normal affect, normal mood - Skin Skin exam: Present: warm, dry, intact, normal color. Absent: rash, cyanosis, diaphoretic, petechiae ED Course Vital Signs 05/12/20 11:46 Temperature 98.3 F Pulse Rate 83 Respiratory 18 Rate Blood Pressure 163/105 O2 Sat by Pulse 99 Oximetry ED Medical Decision Making - Lab Data Result diagrams: 05/12/20 12:11 05/12/20 12:11 Lab Results 05/12/20 05/12/20 05/12/20 Range/Units 12:11 12:11 12:11 WBC 5.6 (4.5-11.0) K/mm3 RBC 4.60 (3.65-5.03) M/mm3 Hgb 14.7 H (10.1-14.3) gm/dl Hct 42.6 (30.3-42.9) % MCV 93 (79-97) fl MCH 32 (28-32) pg MCHC 35 H (30-34) % RDW 12.4 L (13.2-15.2) % Plt Count 245 (140-440) K/mm3 Lymph % (Auto) 25.9 (13.4-35.0) % Slope % (Auto) 5.8 (0.0-7.3) % Eos % (Auto) 0.6 (0.0-4.3) % Baso % (Auto) 0.2 (0.0-1.8) % Lymph # (Auto) 1.4 (1.2-5.4) K/mm3 Slope # (Auto) 0.3 (0.0-0.8) K/mm3 Eos # (Auto) 0.0 (0.0-0.4) K/mm3 Baso # (Auto) 0.0 (0.0-0.1) K/mm3 Seg Neutrophils % 67.5 (40.0-70.0) % Seg Neutrophils # 3.8 (1.8-7.7) K/mm3 Sodium 140 (137-145) mmol/L Potassium 3.8 (3.6-5.0) mmol/L Chloride 100.4 (98-107) mmol/L Carbon Dioxide 29 (22-30) mmol/L Anion Gap 14 mmol/L BUN 12 (7-17) mg/dL Creatinine 0.7 (0.6-1.2) mg/dL Estimated GFR > 60 ml/min BUN/Creatinine Ratio 17 % Glucose 83 (65-100) mg/dL Calcium 9.8 (8.4-10.2) mg/dL Total Bilirubin 0.90 (0.1-1.2) mg/dL AST 19 (5-40) units/L ALT 18 (7-56) units/L Alkaline Phosphatase 96 (35-129) units/L Total Protein 8.3 H (6.3-8.2) g/dL Albumin 4.5 (3.9-5) g/dL Albumin/Globulin Ratio 1.2 % HCG, Qual Negative (Negative) Urine Color (Yellow) Urine Turbidity (Clear) Urine pH (5.0-7.0) Ur Specific [place] (1.003-1.030) Urine Protein (Negative) mg/dL Urine Glucose (UA) (Negative) mg/dL Urine Ketones (Negative) mg/dL Urine Blood (Negative) Urine Nitrite (Negative) Urine Bilirubin (Negative) Urine Urobilinogen (<2.0) mg/dL Ur Leukocyte Esterase (Negative) Urine WBC (Auto) (0.0-6.0) /HPF Urine RBC (Auto) (0.0-6.0) /HPF U Epithel Cells (Auto) (0-13.0) /HPF Urine Bacteria (Auto) (Negative) /HPF Urine Mucus /HPF 05/12/20 Range/Units Unknown WBC (4.5-11.0) K/mm3 RBC (3.65-5.03) M/mm3 Hgb (10.1-14.3) gm/dl Hct (30.3-42.9) % MCV (79-97) fl MCH (28-32) pg MCHC (30-34) % RDW (13.2-15.2) % Plt Count (140-440) K/mm3 Lymph % (Auto) (13.4-35.0) % Slope % (Auto) (0.0-7.3) % Eos % (Auto) (0.0-4.3) % Baso % (Auto) (0.0-1.8) % Lymph # (Auto) (1.2-5.4) K/mm3 Slope # (Auto) (0.0-0.8) K/mm3 Eos # (Auto) (0.0-0.4) K/mm3 Baso # (Auto) (0.0-0.1) K/mm3 Seg Neutrophils % (40.0-70.0) % Seg Neutrophils # (1.8-7.7) K/mm3 Sodium (137-145) mmol/L Potassium (3.6-5.0) mmol/L Chloride (98-107) mmol/L Carbon Dioxide (22-30) mmol/L Anion Gap mmol/L BUN (7-17) mg/dL Creatinine (0.6-1.2) mg/dL Estimated GFR ml/min BUN/Creatinine Ratio % Glucose (65-100) mg/dL Calcium (8.4-10.2) mg/dL Total Bilirubin (0.1-1.2) mg/dL AST (5-40) units/L ALT (7-56) units/L Alkaline Phosphatase (35-129) units/L Total Protein (6.3-8.2) g/dL Albumin (3.9-5) g/dL Albumin/Globulin Ratio % HCG, Qual (Negative) Urine Color Yellow (Yellow) Urine Turbidity Clear (Clear) Urine pH 6.0 (5.0-7.0) Ur Specific [place] 1.024 (1.003-1.030) Urine Protein <15 mg/dl (Negative) mg/dL Urine Glucose (UA) Neg (Negative) mg/dL Urine Ketones 20 (Negative) mg/dL Urine Blood Neg (Negative) Urine Nitrite Neg (Negative) Urine Bilirubin Neg (Negative) Urine Urobilinogen < 2.0 (<2.0) mg/dL Ur Leukocyte Esterase Sm (Negative) Urine WBC (Auto) 8.0 H (0.0-6.0) /HPF Urine RBC (Auto) 2.0 (0.0-6.0) /HPF U Epithel Cells (Auto) 10.0 (0-13.0) /HPF Urine Bacteria (Auto) 1+ (Negative) /HPF Urine Mucus 2+ /HPF - Medical Decision Making 34-year-old -[place] female presents with complaints of dizziness and nausea and vomiting x4 days. She describes the dizziness as room spinning and states it worsens with head movement and causes her to feel nauseous and vomit. She denies any head trauma, vision changes, headache, loss of consciousness, blood thinner use, history of vertigo, difficulty with speech/ambulation, or numbness/tingling/weakness in her limbs. She does admit to recent upper respiratory infection, but denies cough, shortness of breath, or chest pain. No fever/chills/sweats per patient or difficulty moving her neck. No prior medical history per patient. History and symptoms appear to be consistent with vertigo. Bilateral nystagmus noted with head movement on exam. She is neurologically intact on exam. Patient given Ativan, saline, and Zofran along with meclizine. Her symptoms have completely resolved. - UA shows mildly elevated WBCs w will DC home with 3 days of Bactrim ill DC home and have patient follow-up with primary care within 3 days. Prescription for meclizine and Zofran given. Discussed signs and symptoms that should prompt immediate return to the emergency department in detail with patient verbalized understanding. Critical care attestation.: If time is entered above; I have spent that time in minutes in the direct care of this critically ill patient, excluding procedure time. ED Disposition Clinical Impression: Vertigo, benign positional Qualifiers: Laterality: unspecified laterality Qualified Code(s): H81.10 - Benign paroxysmal vertigo, unspecified ear UTI (urinary tract infection) Qualifiers: Urinary tract infection type: acute cystitis Hematuria presence: without hematuria Qualified Code(s): N30.00 - Acute cystitis without hematuria Disposition: DC-01 TO HOME OR SELFCARE Is pt being admited?: No Condition: Stable Instructions: How to Perform the Rosy Maneuver, Benign Positional Vertigo Prescriptions: Meclizine [Antivert] 25 - 50 mg PO TID PRN #20 tablet PRN Reason: dizziness Sulfamethoxazole/Trimethoprim [Bactrim DS TAB] 1 each PO BID 3 Days #6 tablet Ondansetron [Zofran Odt] 4 mg PO Q8HR PRN #15 tab.rapdis PRN Reason: Nausea Referrals: PRIMARY CARE, [Primary Care Provider] - 3-5 Days [facility] [Provider Group] - 3-5 Days Forms: Work/School Release Form(ED)
[2020-05-12] MEDS ORDERED: SODIUM CHLORIDE 0.9% 1000 ML 1,000 ML IV ONE (11:55)
[2020-05-12] MEDS ORDERED: ONDANSETRON 4 MG/2 ML INJ IV ONE (11:55)
[2020-05-12] MEDS ORDERED: LORazepam 2 MG/ML VIAL IV ONE (11:57)
[2020-05-12 12:41] LABS: Basophils % (Auto) 0.2 % (0.0-1.8); Eosinophils % (Auto) 0.6 % (0.0-4.3); Hematocrit 42.6 % (30.3-42.9); Hemoglobin 14.7 gm/dl (10.1-14.3); Lymphocytes # (Auto) 1.4 K/mm3 (1.2-5.4); Lymphocytes % (Auto) 25.9 % (13.4-35.0); Mean Corpuscular HGB Conc 35 % (30-34); Mean Corpuscular Volume 93 fl (79-97); Monocytes # (Auto) 0.3 K/mm3 (0.0-0.8); Monocytes % (Auto) 5.8 % (0.0-7.3); Platelet Count 245 K/mm3 (140-440); Red Cell Distribution Width 12.4 % (13.2-15.2)
[2020-05-12 12:59] LABS: Alanine Aminotransferase 18 units/L (7-56); Albumin 4.5 g/dL (3.9-5); Blood Urea Nitrogen 12 mg/dL (7-17); Calcium 9.8 mg/dL (8.4-10.2); Hemolysis Index 3
[2020-05-12 13:02] LABS: BUN/Creatinine Ratio 17
[2020-05-12] MEDS ORDERED: diphenhydrAMINE 25 MG CAP PO ONE (13:46)
[2020-05-12 15:18] LABS: Bacteria,Urine 1+ /HPF (Negative); Bilirubin,Urine NEG (Negative); Blood,Urine NEG (Negative); Color,Urine Yellow (Yellow); Mucus,Urine 2+ /HPF; Protein,Urine <15 mg/dL mg/dL (Negative); Urobilinogen,Urine < 2.0 mg/dL (<2.0)
[2020-05-12 16:48] VITALS: BP 158/94
== END 2020-05-12 16:16 | disposition home or self-care (01) ==
LOC: ED 11:17
DX: H81.10 Benign paroxysmal vertigo, unspecified ear (principal); N39.0 Urinary tract infection, site not specified; Z79.899 Other long term (current) drug therapy
CPT/HCPCS: 36415; 80053; 81001; 84703; 85025; 87086; 96361; 96374; 96375; 99283; J2060; J2405; J7030